=== PATIENT | female | born 1995 | race American Indian/Alaskan Native ===

== ENCOUNTER 2019-05-28 12:59 | Emergency (ER) | payer MEDICAID ==
--- NOTE | 2019-05-28 13:07 | Event Note ---
ED Screening Note Date of service: 05/28/19 Time: 13:04 ED Screening Note: 23 y/o female comes in for elevated blood pressure with no symptoms. Had history of elevated BP during her . ETOH weekends, smokes, LMP 05/08/19 This initial assessment/diagnostic orders/clinical plan/treatment(s) is/are subject to change based on patients health status, clinical progression and re- assessment by fellow clinical providers in the ED. Further treatment and workup at subsequent clinical providers discretion. Patient/guardian urged not to elope from the ED as their condition may be serious if not clinically assessed and managed. Initial orders include:
[2019-05-28 13:35] LABS: Bacteria,Urine 4+ /HPF (Negative); Bilirubin,Urine NEG (Negative); Blood,Urine SM (Negative); Color,Urine Straw (Yellow); Protein,Urine <15 mg/dL mg/dL (Negative); Urobilinogen,Urine < 2.0 mg/dL (<2.0)
[2019-05-28 13:40] LABS: Basophils % (Auto) 0.7 % (0.0-1.8); Eosinophils # (Auto) 0.2 K/mm3 (0.0-0.4); Eosinophils % (Auto) 3.8 % (0.0-4.3); Hematocrit 37.3 % (30.3-42.9); Hemoglobin 12.4 gm/dl (10.1-14.3); Lymphocytes # (Auto) 1.2 K/mm3 (1.2-5.4); Lymphocytes % (Auto) 19.8 % (13.4-35.0); Mean Corpuscular HGB Conc 33 % (30-34); Mean Corpuscular Volume 82 fl (79-97); Monocytes # (Auto) 0.5 K/mm3 (0.0-0.8); Monocytes % (Auto) 7.3 % (0.0-7.3); Platelet Count 275 K/mm3 (140-440); Red Blood Count 4.55 M/mm3 (3.65-5.03); Red Cell Distribution Width 14.7 % (13.2-15.2)
[2019-05-28 13:57] LABS: BUN/Creatinine Ratio 9; Blood Urea Nitrogen 7 mg/dL (7-17); Calcium 9.6 mg/dL (8.4-10.2); Hemolysis Index 4
[2019-05-28] MEDS ORDERED: CATAPRES PO ONE (14:22)
--- NOTE | 2019-05-28 14:23 | Emergency Department Report ---
HPI - General Chief Complaint: High BP Time Seen by Provider: 05/28/19 13:04 - HPI HPI: PT SENT TO ER FROM [facility] FOR EVALUATION FOR HER BLOOD PRESSURE PT STATES SHE HAS NEVER BEEN TOLD OUTSIDE OF HER THAT SHE HAD HIGH BLOOD PRESSURE SHE IS NOT ON ANY MEDS SHE HAS NO HEADACHE, SOB, OR CP ED Past Medical Hx - Past Medical History Previous Medical History?: Yes Additional medical history: HTN DURING PREG- YOUNGEST CHILD IS 1.5 Y. HYPERALDOSTERONISM DURING - Surgical History Past Surgical History?: Yes Additional Surgical History: CSEC - Family History Family history: no significant - Social History Smoking Status: Current Every Day Smoker Substance Use Type: Alcohol ED Review of Systems ROS: Stated complaint: HBP Other details as noted in HPI Comment: All other systems reviewed and negative Physical Exam - Physical Exam Vital Signs: Vital Signs 05/28/19 13:04 Temperature 97.9 F Pulse Rate 78 Respiratory 18 Rate Blood Pressure 205/127 O2 Sat by Pulse 100 Oximetry Physical Exam: ALERT AND ORIENTED CN INTACT NO FOCAL DEF S1S2 LUNGS CTA ABD SNT ED Course Vital Signs 05/28/19 13:04 Temperature 97.9 F Pulse Rate 78 Respiratory 18 Rate Blood Pressure 205/127 O2 Sat by Pulse 100 Oximetry ED Medical Decision Making - Lab Data Result diagrams: 05/28/19 13:12 05/28/19 13:12 - Medical Decision Making Lab Results 05/28/19 05/28/19 05/28/19 Range/Units 13:12 13:12 13:22 WBC 6.2 (4.5-11.0) K/mm3 RBC 4.55 (3.65-5.03) M/mm3 Hgb 12.4 (10.1-14.3) gm/dl Hct 37.3 (30.3-42.9) % MCV 82 (79-97) fl MCH 27 L (28-32) pg MCHC 33 (30-34) % RDW 14.7 (13.2-15.2) % Plt Count 275 (140-440) K/mm3 Lymph % (Auto) 19.8 (13.4-35.0) % [place] % (Auto) 7.3 (0.0-7.3) % Eos % (Auto) 3.8 (0.0-4.3) % Baso % (Auto) 0.7 (0.0-1.8) % Lymph # 1.2 (1.2-5.4) K/mm3 [place]ade # 0.5 (0.0-0.8) K/mm3 Eos # 0.2 (0.0-0.4) K/mm3 Baso # 0.0 (0.0-0.1) K/mm3 Seg Neutrophils % 68.4 (40.0-70.0) % Seg Neutrophils # 4.2 (1.8-7.7) K/mm3 Sodium 138 (137-145) mmol/L Potassium 3.6 (3.6-5.0) mmol/L Chloride 101.4 (98-107) mmol/L Carbon Dioxide 25 (22-30) mmol/L Anion Gap 15 mmol/L BUN 7 (7-17) mg/dL Creatinine 0.8 (0.7-1.2) mg/dL Estimated GFR > 60 ml/min BUN/Creatinine Ratio 9 % Glucose 88 (65-100) mg/dL Calcium 9.6 (8.4-10.2) mg/dL Urine Color Straw (Yellow) Urine Turbidity Clear (Clear) Urine pH 6.0 (5.0-7.0) Ur Specific [place] 1.003 (1.003-1.030) Urine Protein <15 mg/dl (Negative) mg/dL Urine Glucose (UA) Neg (Negative) mg/dL Urine Ketones Neg (Negative) mg/dL Urine Blood Sm (Negative) Urine Nitrite Neg (Negative) Urine Bilirubin Neg (Negative) Urine Urobilinogen < 2.0 (<2.0) mg/dL Ur Leukocyte Esterase Neg (Negative) Urine WBC (Auto) 2.0 (0.0-6.0) /HPF Urine RBC (Auto) 2.0 (0.0-6.0) /HPF U Epithel Cells (Auto) 1.0 (0-13.0) /HPF Urine Bacteria (Auto) 4+ (Negative) /HPF Vital Signs 05/28/19 05/28/19 05/28/19 13:04 14:29 14:31 Temperature 97.9 F Pulse Rate 78 77 Respiratory 18 15 16 Rate Blood Pressure 205/127 Blood Pressure 164/102 [Right] O2 Sat by Pulse 100 Oximetry 05/28/19 14:44 Temperature Pulse Rate 77 Respiratory Rate Blood Pressure 164/102 Blood Pressure [Right] O2 Sat by Pulse Oximetry MEDICATED WITH CLONIDINE FOR BP TOLERATED WELL LONG DISCUSSION WITH PT AND HER ABOUT BLOOD PRESSURE AND HER ISSUES DURING . PT HAS NO SYMPTOMS. SHE HAS BEEN EDUCATED ON DIET, SHE WILL KEEP BP LOG AND FOLLOW UP WITH PCP- REFERRAL PROVIDED. PT AND VERBALIZE UNDERSTANDING OF DC PLAN OF CARE. - Differential Diagnosis HTN RO END ORGAN DISEASE Critical care attestation.: If time is entered above; I have spent that time in minutes in the direct care of this critically ill patient, excluding procedure time. ED Disposition Clinical Impression: Elevated blood pressure reading Disposition: DC-01 TO HOME OR SELFCARE Is pt being admited?: No Does the pt Need Aspirin: No Condition: Stable Instructions: DASH Eating Plan (ED), Low Sodium Diet (ED), Hypertension (ED) Additional Instructions: FOLLOW UP WITH PCP DENIS WE DISCUSSED RECORD YOUR BP AND TAKE TO MD DIET WE DISCUSSED-- SEE ATTACHED REFERRAL BELOW TO PCP Referrals: RENATA GARCIA MD [Primary Care Provider] - 3-5 Days J CARLOS FRANCOIS MD [Staff Physician] - 3-5 Days Time of Disposition: 15:21
[2019-05-28 16:29] VITALS: BP 170/109
== END 2019-05-28 16:29 | disposition home or self-care (01) ==
LOC: ED 12:59
DX: R03.0 Elevated blood-pressure reading, without diagnosis of hypertension (principal); F17.200 Nicotine dependence, unspecified, uncomplicated
CPT/HCPCS: 36415; 80048; 81001; 85025

== ENCOUNTER 2019-07-04 15:57 | Emergency (ER) | payer MEDICAID ==
[2019-07-04 16:07] VITALS: BP 154/107
[2019-07-04 16:51] LABS: Basophils # (Auto) 0.1 K/mm3 (0.0-0.1); Basophils % (Auto) 0.5 % (0.0-1.8); Eosinophils # (Auto) 0.2 K/mm3 (0.0-0.4); Eosinophils % (Auto) 1.5 % (0.0-4.3); Hematocrit 38.3 % (30.3-42.9); Hemoglobin 12.6 gm/dl (10.1-14.3); Lymphocytes # (Auto) 0.8 K/mm3 (1.2-5.4); Lymphocytes % (Auto) 7.4 % (13.4-35.0); Mean Corpuscular HGB Conc 33 % (30-34); Mean Corpuscular Volume 80 fl (79-97); Monocytes # (Auto) 0.7 K/mm3 (0.0-0.8); Monocytes % (Auto) 6.6 % (0.0-7.3); Platelet Count 280 K/mm3 (140-440); Red Blood Count 4.76 M/mm3 (3.65-5.03); Red Cell Distribution Width 14.4 % (13.2-15.2)
[2019-07-04] MEDS ORDERED: TORADOL IM ONE (19:55)
[2019-07-04] MEDS ORDERED: LIDOCAINE VISCOUS 2% PO ONE (19:55)
[2019-07-04] MEDS ORDERED: DECADRON IM ONE (19:55)
[2019-07-04] MEDS ORDERED: BICILLIN L-A IM ONE (19:56)
[2019-07-04 22:38] LABS: Bacteria,Urine 2+ /HPF (Negative); Bilirubin,Urine NEG (Negative); Blood,Urine LG (Negative); Color,Urine Yellow (Yellow); Mucus,Urine 2+ /HPF; Urobilinogen,Urine < 2.0 mg/dL (<2.0)
--- NOTE | 2019-07-04 22:58 | Emergency Department Report ---
ED General Adult HPI - General Chief complaint: Vaginal Bleeding Stated complaint: MENSTRAL OVER 10 DAYS/PAIN Source: patient Mode of arrival: Ambulatory Limitations: No Limitations - History of Present Illness Initial comments: Patient is a 23-year-old -[place] female with a history of hypertension who presents to the ED with complaint of acute onset persistent severe sore throat and dysphagia with swollen tonsils for the last 4 days, and persistent heavy vaginal bleeding for the last 2 weeks. Patient denies abdominal pain, dysuria, chest pain, vaginal discharge, urinary frequency and urgency, low back pain, headache, dizziness, chest pain, shortness of breath, nasal and sinus congestion, cough, change in vision, nausea and vomiting. MD Complaint: Sore throat; vaginal bleeding -: Sudden, days(s) (4) Location: mouth, genitals Radiation: non-radiation Severity scale (0 -10): 6 Quality: burning, aching, sharp Consistency: constant Improves with: none Worsens with: none Associated Symptoms: denies other symptoms, headaches, loss of appetite, malaise. denies: confusion, chest pain, cough, diaphoresis, fever/chills, nausea/vomiting, rash, seizure, shortness of breath, syncope, weakness Treatments Prior to Arrival: none - Related Data Previous Rx's Medication Instructions Recorded Last Taken Type Ibuprofen [Motrin] 800 mg PO Q8HR PRN #20 tablet 07/04/19 Unknown Rx Lidocaine Viscous 2% 10 ml PO Q6H PRN #120 ml 07/04/19 Unknown Rx cephALEXin [Keflex] 500 mg PO Q6HR #40 capsule 07/04/19 Unknown Rx medroxyPROGESTERone ACETATE 10 mg PO DAILY #10 tablet 07/04/19 Unknown Rx [Medroxyprogesterone Acetate] methylPREDNISolone [Medrol 4MG 4 mg PO DAILY #21 tab.ds.pk 07/04/19 Unknown Rx DOSEPAK (21 tabs)] Allergies Allergy/AdvReac Type Severity Reaction Status Date / Time pollen extracts AdvReac Hives Verified 07/04/19 16:01 ED Review of Systems ROS: Stated complaint: MENSTRAL OVER 10 DAYS/PAIN Other details as noted in HPI Constitutional: denies: chills, fever Eyes: denies: eye pain, eye discharge, vision change ENT: throat pain, congestion. denies: ear pain Respiratory: denies: cough, shortness of breath, wheezing Cardiovascular: denies: chest pain, palpitations Endocrine: no symptoms reported Gastrointestinal: denies: abdominal pain, nausea, vomiting, diarrhea, hematemesis Genitourinary: abnormal menses (Prolonged heavy vaginal bleeding). denies: urgency, dysuria, discharge Musculoskeletal: arthralgia, myalgia. denies: back pain, joint swelling Skin: denies: rash, lesions Neurological: denies: headache, weakness, paresthesias Psychiatric: denies: anxiety, depression Hematological/Lymphatic: denies: easy bleeding, easy bruising ED Past Medical Hx - Past Medical History Hx Hypertension: Yes Additional medical history: HTN DURING PREG- YOUNGEST CHILD IS 1.5 Y. HYPERALDOSTERONISM DURING - Surgical History Additional Surgical History: CSEC - Social History Smoking Status: Current Every Day Smoker Substance Use Type: None - Medications Home Medications: Home Medications Medication Instructions Recorded Confirmed Last Taken Type Ibuprofen [Motrin] 800 mg PO Q8HR PRN #20 tablet 07/04/19 Unknown Rx Lidocaine Viscous 2% 10 ml PO Q6H PRN #120 ml 07/04/19 Unknown Rx cephALEXin [Keflex] 500 mg PO Q6HR #40 capsule 07/04/19 Unknown Rx medroxyPROGESTERone ACETATE 10 mg PO DAILY #10 tablet 07/04/19 Unknown Rx [Medroxyprogesterone Acetate] methylPREDNISolone [Medrol 4MG 4 mg PO DAILY #21 tab.ds.pk 07/04/19 Unknown Rx DOSEPAK (21 tabs)] ED Physical Exam - General Limitations: No Limitations General appearance: alert, in no apparent distress - Head Head exam: Present: atraumatic, normocephalic, normal inspection - Eye Eye exam: Present: normal appearance, PERRL, EOMI Pupils: Present: normal accommodation - ENT ENT exam: Present: mucous membranes moist, TM's normal bilaterally, normal external ear exam, other (swollen, erythematous tonsils and oropharynx with thick white exudates) - Neck Neck exam: Present: normal inspection, full ROM, lymphadenopathy. Absent: tenderness - Respiratory Respiratory exam: Present: normal lung sounds bilaterally. Absent: respiratory distress, wheezes, rales, rhonchi, chest wall tenderness, decreased breath sounds, prolonged expiratory - Cardiovascular Cardiovascular Exam: Present: regular rate, normal rhythm, normal heart sounds. Absent: systolic murmur, diastolic murmur, rubs, gallop - GI/Abdominal GI/Abdominal exam: Present: soft, normal bowel sounds. Absent: tenderness, guarding, hyperactive bowel sounds, organomegaly - Rectal Rectal exam: Present: deferred - Bi-manual exam: Present: other (deferred, patient declined) - Extremities Exam Extremities exam: Present: normal inspection, full ROM, normal capillary refill - Back Exam Back exam: Present: normal inspection, full ROM. Absent: tenderness, CVA tenderness (R), CVA tenderness (L), muscle spasm, vertebral tenderness - Neurological Exam Neurological exam: Present: alert, oriented X3, CN II-XII intact, normal gait, reflexes normal - Psychiatric Psychiatric exam: Present: normal affect, normal mood - Skin Skin exam: Present: warm, dry, intact, normal color. Absent: rash ED Course Vital Signs 07/04/19 16:06 Temperature 98.8 F Pulse Rate 90 Respiratory 16 Rate Blood Pressure 154/107 [Left] O2 Sat by Pulse 99 Oximetry - Reevaluation(s) Reevaluation #1: 07/04/19 23:06 This is a 23-year-old female who presented to the ED with sore throat, dysphagia and vaginal bleeding. In the ED, patient is alert and oriented 3 and is not in distress. Physical exam revealed swollen tonsils with thick white exudates and erythematous oropharynx. Patient is alert and oriented 3 and is not in distress. Vital signs are stable in the ED patient was treated for pain in the ED and also received Bicillin LA 1.2 million units intramuscular injection MP Rigali for streptococcal pharyngitis, patient also received viscous lidocaine oral solution and Decadron injection. Lab test results were reviewed and are all nonactionable except for urinalysis that showed acute urinary tract infection with large amount of blood in the urine. Patient was discharged home on medications and advised to follow-up with her [facility] physician or primary care physician in 7-10 days for reevaluation or return to the ED immediately if symptoms get worse. 07/04/19 23:08 ED Medical Decision Making - Lab Data Result diagrams: 07/04/19 16:24 - Medical Decision Making This is a 23-year-old female who presented to the ED with sore throat, dysphagia and vaginal bleeding. In the ED, patient is alert and oriented 3 and is not in distress. Physical exam revealed swollen tonsils with thick white exudates and erythematous oropharynx. Patient is alert and oriented 3 and is not in distress. Vital signs are stable in the ED patient was treated for pain in the ED and also received Bicillin LA 1.2 million units intramuscular injection MP Rigali for streptococcal pharyngitis, patient also received viscous lidocaine oral solution and Decadron injection. Lab test results were reviewed and are all nonactionable except for urinalysis that showed acute urinary tract infection with large amount of blood in the urine. Patient was discharged home on medications and advised to follow-up with her [facility] physician or primary care physician in 7-10 days for reevaluation or return to the ED immediately if symptoms get worse. - Differential Diagnosis Strep pharyngitis; Vaginal bleeding; ; Acute UTI; menstrual cycle Critical care attestation.: If time is entered above; I have spent that time in minutes in the direct care of this critically ill patient, excluding procedure time. ED Disposition Clinical Impression: Acute streptococcal pharyngitis, Acute urinary tract infection, Dysfunctional uterine hemorrhage Disposition: TO HOME OR SELFCARE Is pt being admited?: No Does the pt Need Aspirin: No Condition: Stable Instructions: Urinary Tract Infection in Women (ED), Pharyngitis (ED), Menstrua tion (ED) Additional Instructions: Take medication with food, drink plenty of fluids and follow up with your primary care physician in 7-10 days for reevaluation. Return to the ED immediately if symptoms get worse. Prescriptions: cephALEXin [Keflex] 500 mg PO Q6HR #40 capsule Lidocaine Viscous 2% 10 ml PO Q6H PRN #120 ml PRN Reason: Pain , Severe (7-10) methylPREDNISolone [Medrol 4MG DOSEPAK (21 tabs)] 4 mg PO DAILY #21 tab.ds.pk medroxyPROGESTERone ACETATE [Medroxyprogesterone Acetate] 10 mg PO DAILY #10 tablet Ibuprofen [Motrin] 800 mg PO Q8HR PRN #20 tablet PRN Reason: Pain , Severe (7-10) Referrals: PRIMARY CARE, [Primary Care Provider] - 3-5 Days Time of Disposition: 22:56 Print Language: MOHAWK
== END 2019-07-04 23:10 | disposition home or self-care (01) ==
LOC: ED 15:57
DX: J02.0 Streptococcal pharyngitis (principal); N39.0 Urinary tract infection, site not specified; N93.8 Other specified abnormal uterine and vaginal bleeding; I10 Essential (primary) hypertension; F17.200 Nicotine dependence, unspecified, uncomplicated; Z88.9 Allergy status to unspecified drugs, medicaments and biological substances; Z79.899 Other long term (current) drug therapy
CPT/HCPCS: 36415; 81001; 84702; 84703; 85025; 86900; 86901; 87086; 96372; 99283; J0561; J1100; J1885

== ENCOUNTER 2019-07-25 05:06 | Emergency (ER) | payer MEDICAID ==
[2019-07-25] MEDS ORDERED: ALBUTEROL 2.5 MG/3 ML NEBU IH ONE (07:46)
[2019-07-25] MEDS ORDERED: predniSONE 20 MG TAB PO ONE (07:46)
--- NOTE | 2019-07-25 07:47 | Emergency Department Report ---
Minor Respiratory - HPI Chief Complaint: Upper Respiratory Infection Stated Complaint: COUGH, NASAL DRIP Time Seen by Provider: 07/25/19 07:14 Duration: 3 Days Pain Location: Throat, Nose, Chest Severity: mild Minor Respiratory: Yes Rhinorrhea, Yes Sore Throat, Yes Able to Tolerate Fluids, Yes Cough, No Ear Pain, No Sick Contacts, No Hemoptysis, No Chest Pain, No Short ness of Breath, No Fever Other History: 23 YO AA FEMALE COMES TO ER WITH COLD COUGH CONGESTION. CHILLS AND GREEN PHLEGM FOR SEVERAL DAYS. PMH. HTN- OFF MEDS. BRONCHITIS. PT HAS NO PCP. DENIES CP. SOB. ED Review of Systems ROS: Stated complaint: COUGH, NASAL DRIP Other details as noted in HPI Comment: All other systems reviewed and negative ED Past Medical Hx - Past Medical History Previous Medical History?: Yes Hx Hypertension: Yes Additional medical history: HTN DURING PREG- YOUNGEST CHILD IS 1.5 Y. HYPERALDOSTERONISM DURING - Surgical History Past Surgical History?: Yes Additional Surgical History: CSEC - Family History Family history: no significant - Social History Smoking Status: Current Every Day Smoker Substance Use Type: None - Medications Home Medications: Home Medications Medication Instructions Recorded Confirmed Last Taken Type Ibuprofen [Motrin] 800 mg PO Q8HR PRN #20 tablet 07/04/19 Unknown Rx Lidocaine Viscous 2% 10 ml PO Q6H PRN #120 ml 07/04/19 Unknown Rx cephALEXin [Keflex] 500 mg PO Q6HR #40 capsule 07/04/19 Unknown Rx medroxyPROGESTERone ACETATE 10 mg PO DAILY #10 tablet 07/04/19 Unknown Rx [Medroxyprogesterone Acetate] methylPREDNISolone [Medrol 4MG 4 mg PO DAILY #21 tab.ds.pk 07/04/19 Unknown Rx DOSEPAK (21 tabs)] Azithromycin [Zithromax Z-FREDDY] 250 mg PO DAILY #6 tablet 07/25/19 Unknown Rx Benzonatate [Tessalon Perles] 100 mg PO Q12H PRN #20 capsule 07/25/19 Unknown Rx Cetirizine HCl [ZyrTEC] 10 mg PO DAILY #30 capsule 07/25/19 Unknown Rx Fluticasone [Flonase] 1 spray NS QDAY #1 bottle 07/25/19 Unknown Rx predniSONE [Deltasone] 20 mg PO DAILY #5 tablet 07/25/19 Unknown Rx Minor Respiratory Exam - Exam General: Vital signs noted. No distress. Alert and acting appropriately. HEENT: Yes Pharyngeal Erythema, Yes Moist Mucous Membranes, Yes Frontal Tenderness, Yes Maxillary Tenderness, No Pharyngeal Exudates, No Rhinorrhea, No Conjuctival Injection Ear: Neither TM Bulge, Neither TM Erythema, Neither EAC Pain, Neither EAC Discharge Neck: Yes Supple, No Adenopathy Lungs: Yes Good Air Exchange, Yes Wheezes, Yes Cough, No Ronchi, No Stridor Heart: Yes Regular, No Murmur Abdomen: Yes Normal Bowel Sounds, No Tenderness, No Peritoneal Signs Skin: No Rash Neurologic: Alert and oriented, no deficits. Musculoskeletal: Unremarkable. ED Course Vital Signs 07/25/19 05:45 Temperature 99.3 F Pulse Rate 92 H Respiratory 14 Rate Blood Pressure 160/105 O2 Sat by Pulse 99 Oximetry ED Medical Decision Making - Medical Decision Making NON TOXIC NON ILL AMBULATORY TAKING PO EDUCATED ON HER BP SHE HAS NO PCP I TOLD HER SHE NEEDS TO FOLLOW UP WITH PCP REGARDING HER BP; DISCUSSED HER WEIGHT BEING A FACTOR SHE VERBALIZES UNDERSTANDING AND WILL FOLLOW UP MEDICATED IN ER DC HOME WITH DC PLAN OF CARE AND PCP FOLLOW UP Vital Signs 07/25/19 07/25/19 05:45 07:58 Temperature 99.3 F Pulse Rate 92 H Pulse Rate [ 81 Anterior Throughout] Respiratory 14 Rate Respiratory 18 Rate [Anterior Throughout] Blood Pressure 160/105 O2 Sat by Pulse 99 Oximetry - Differential Diagnosis SIMPLE URI Critical care attestation.: If time is entered above; I have spent that time in minutes in the direct care of this critically ill patient, excluding procedure time. ED Disposition Clinical Impression: URTI (acute upper respiratory infection), Acute bronchitis, Elevated blood pressure reading Disposition: DC-01 TO HOME OR SELFCARE Is pt being admited?: No Does the pt Need Aspirin: No Condition: Stable Instructions: Acute Bronchitis (ED) Additional Instructions: HYDRATE WELL WITH WATER MEDS ORDERED TODAY FOLLOW UP WITH PCP REGARDING BLOOD PRESSURE REFERRAL BELOW Prescriptions: predniSONE [Deltasone] 20 mg PO DAILY #5 tablet Fluticasone [Flonase] 1 spray NS QDAY #1 bottle Benzonatate [Tessalon Perles] 100 mg PO Q12H PRN #20 capsule PRN Reason: Cough Azithromycin [Zithromax Z-FREDDY] 250 mg PO DAILY #6 tablet Cetirizine HCl [ZyrTEC] 10 mg PO DAILY #30 capsule Referrals: PRIMARY CARE, [Primary Care Provider] - 3-5 Days EVARISTO ROBERTSON MD [Staff Physician] - 3-5 Days Time of Disposition: 08:05
[2019-07-25 08:20] VITALS: BP 160/100
== END 2019-07-25 08:19 | disposition home or self-care (01) ==
LOC: ED 05:06
DX: J06.9 Acute upper respiratory infection, unspecified (principal); J20.9 Acute bronchitis, unspecified; R03.0 Elevated blood-pressure reading, without diagnosis of hypertension; I10 Essential (primary) hypertension; F17.200 Nicotine dependence, unspecified, uncomplicated; Z79.899 Other long term (current) drug therapy; Z91.09 Other allergy status, other than to drugs and biological substances
CPT/HCPCS: 94644; 99283; J7512

== ENCOUNTER 2020-09-04 07:31 | Emergency (ER) | payer MEDICAID ==
[2020-09-04 08:21] LABS: Hematocrit 39.9 % (30.3-42.9); Hemoglobin 13.3 gm/dl (10.1-14.3); Mean Corpuscular HGB Conc 33 % (30-34); Mean Corpuscular Volume 82 fl (79-97); Platelet Count 314 K/mm3 (140-440); Red Blood Count 4.88 M/mm3 (3.65-5.03); Red Cell Distribution Width 14.3 % (13.2-15.2)
[2020-09-04 08:39] LABS: BUN/Creatinine Ratio 10; Blood Urea Nitrogen 9 mg/dL (7-17); Calcium 9.5 mg/dL (8.4-10.2); Hemolysis Index 2
[2020-09-04 09:09] VITALS: BP 167/104
[2020-09-04] MEDS ORDERED: KETOROLAC 60 MG/2 ML INJ IM STA (09:38)
[2020-09-04] MEDS ORDERED: ONDANSETRON 4 MG ODT TAB PO STA (09:39)
[2020-09-04] MEDS ORDERED: oxyCODONE /ACETAMINOPHEN 5-325MG TAB PO ONE (09:39)
--- NOTE | 2020-09-04 09:45 | Emergency Department Report ---
ED Headache HPI - General Chief Complaint: Headache Stated Complaint: HEADACHES X 4 DAYS Time Seen by Provider: 09/04/20 09:16 - History of Present Illness Initial Comments: 25-year-old F [place]an female with a 2-year history of untreated hypertension presents emerge department complaining of a 4 to 5-day history of left-sided he adache was dull and throbbing of an unknown etiology associated with a vague episodes of lightheadedness on yesterday. She reports no loss of vision request, no numbness tingling" ports no nausea, no vomiting, no fever, chills, sweats, no chest pain, no palpitations no tinnitus. The headache is dull and throbbing when present with no palliative or provocative factors she did notice her blood pressure has been increasing. She is moving to [place] tomorrow and presents to the emergency department seeking treatment for her headache and has an appointment with her primary care doctor in [place] on September 29 but request assistance with finding a sooner appointment if possible Timing/Duration: other (4 days) Quality: mild, moderate Head Injury Location: parietal Recent Head Trauma: occasional headaches Associated Symptoms: denies: facial pain, fever/chills, flushing, nasal congestion, sinus infection, vision changes, weakness Allergies/Adverse Reactions: Allergies pollen extracts Adverse Reaction (Verified 07/04/19 16:01) Hives Home Medications: Ambulatory Orders Ibuprofen [Motrin] 800 mg PO Q8HR PRN #20 tablet 07/04/19 Lidocaine Viscous 2% 10 ml PO Q6H PRN #120 ml 07/04/19 cephALEXin [Keflex] 500 mg PO Q6HR #40 capsule 07/04/19 medroxyPROGESTERone ACETATE [Medroxyprogesterone Acetate] 10 mg PO DAILY #10 tablet 07/04/19 methylPREDNISolone [Medrol 4MG DOSEPAK (21 tabs)] 4 mg PO DAILY #21 tab.ds.pk 07/04/19 Azithromycin [Zithromax Z-FREDDY] 250 mg PO DAILY #6 tablet 07/25/19 Benzonatate [Tessalon Perles] 100 mg PO Q12H PRN #20 capsule 07/25/19 Cetirizine HCl [ZyrTEC] 10 mg PO DAILY #30 capsule 07/25/19 Fluticasone [Flonase] 1 spray NS QDAY #1 bottle 10/03/19 predniSONE [Deltasone] 20 mg PO DAILY #5 tablet 07/25/19 Amlodipine Besylate [Norvasc] 5 mg PO DAILY #30 tablet 09/04/20 Butalb/Acetaminophen/Caffeine [Fioricet 50-300-40 mg CAP] 1 cap PO Q6HR PRN #20 cap 09/04/20 ED Review of Systems ROS: Stated complaint: HEADACHES X 4 DAYS Other details as noted in HPI Comment: All other systems reviewed and negative ED Past Medical Hx - Past Medical History Previous Medical History?: Yes Hx Hypertension: Yes (No medication) Additional medical history: HTN DURING PREG- YOUNGEST CHILD IS 1.5 Y. HYPERA LDOSTERONISM DURING - Surgical History Past Surgical History?: Yes Additional Surgical History: CSEC - Social History Smoking Status: Current Every Day Smoker - Medications Home Medications: Home Medications Medication Instructions Recorded Confirmed Last Taken Type Ibuprofen [Motrin] 800 mg PO Q8HR PRN #20 tablet 07/04/19 Unknown Rx Lidocaine Viscous 2% 10 ml PO Q6H PRN #120 ml 07/04/19 Unknown Rx cephALEXin [Keflex] 500 mg PO Q6HR #40 capsule 07/04/19 Unknown Rx medroxyPROGESTERone ACETATE 10 mg PO DAILY #10 tablet 07/04/19 Unknown Rx [Medroxyprogesterone Acetate] methylPREDNISolone [Medrol 4MG 4 mg PO DAILY #21 tab.ds.pk 07/04/19 Unknown Rx DOSEPAK (21 tabs)] Azithromycin [Zithromax Z-FREDDY] 250 mg PO DAILY #6 tablet 07/25/19 Unknown Rx Benzonatate [Tessalon Perles] 100 mg PO Q12H PRN #20 capsule 07/25/19 Unknown Rx Cetirizine HCl [ZyrTEC] 10 mg PO DAILY #30 capsule 07/25/19 Unknown Rx Fluticasone [Flonase] 1 spray NS QDAY #1 bottle 07/25/19 Unknown Rx predniSONE [Deltasone] 20 mg PO DAILY #5 tablet 07/25/19 Unknown Rx Amlodipine Besylate [Norvasc] 5 mg PO DAILY #30 tablet 09/04/20 Unknown Rx Butalb/Acetaminophen/Caffeine 1 cap PO Q6HR PRN #20 cap 09/04/20 Unknown Rx [Fioricet 50-300-40 mg CAP] ED Physical Exam - General Limitations: No Limitations General appearance: alert, in no apparent distress - Head Head exam: Present: atraumatic, normocephalic - Eye Eye exam: Present: normal appearance, PERRL, EOMI, nystagmus Pupils: Present: other (Negative funduscopic examination) - ENT ENT exam: Present: normal exam, mucous membranes moist - Neck Neck exam: Present: normal inspection, full ROM - Respiratory Respiratory exam: Present: normal lung sounds bilaterally. Absent: respiratory distress, wheezes, rales, chest wall tenderness, accessory muscle use - Cardiovascular Cardiovascular Exam: Present: regular rate, normal rhythm. Absent: systolic murmur, diastolic murmur, rubs, gallop - GI/Abdominal GI/Abdominal exam: Present: soft, normal bowel sounds - Extremities Exam Extremities exam: Present: normal inspection, full ROM, normal capillary refill - Back Exam Back exam: Present: normal inspection. Absent: CVA tenderness (R), CVA tenderness (L) - Neurological Exam Neurological exam: Present: alert, oriented X3, CN II-XII intact, normal gait, reflexes normal. Absent: motor sensory deficit - Psychiatric Psychiatric exam: Present: normal affect, normal mood. Absent: flat affect, manic, homicidal ideation, suicidal ideation - Skin Skin exam: Present: warm, dry, intact, normal color. Absent: rash ED Course Vital Signs 09/04/20 09/04/20 07:38 09:01 Temperature 97.9 F 98.3 F Pulse Rate 82 80 Respiratory 20 16 Rate Blood Pressure 190/120 Blood Pressure 167/104 [Left] O2 Sat by Pulse 100 100 Oximetry ED Medical Decision Making - Lab Data Result diagrams: 09/04/20 08:06 09/04/20 08:06 - Medical Decision Making This patient presents with a headache most consistent with tension. Differential diagnosis includes migraine versus tension type headache. No headache red flags. Neurologic exam without evidence of meningismus, focal neurologic findings.Based on the patient's history and physical there is very low clinical suspicion for significant intracranial pathology. The headache was NOT sudden onset, NOT maximal at onset, there are NO neurologic findings, the patient does NOT have a fever, the patient does NOT have any jaw claudication, the patient does NOT endorse a clotting disorder, patient DENIES any trauma or eye pain and the headache is NOT associated with dizziness or ataxia. Presentation not consistent with acute intracranial bleed to include SAH (lack of risk factors, headache history). Presentation not consistent with acute [employer] infection to include meningitis or brain abscess, Temporal arteritis unlikely, as is acute angle closure glaucoma given history and physical findings. Presentation not consistent with other acute, emergent causes of headache at this time. Plan to treat symptomatically with pain medication. No indication for imaging/LP at this time. Plan: Analgesic control and hypertension control. Advised to follow-up with new primary care provider and at the [place] upon her arrival also gave her an alternative option as she requested. She has been neurologically stable throughout this entire ED visit speaking in full sentences no ataxia sound understanding and interpretation of the importance of compliance with hypertension medication and also when to return to the emergency department should it be necessary Critical care attestation.: If time is entered above; I have spent that time in minutes in the direct care of this critically ill patient, excluding procedure time. ED Disposition Clinical Impression: Hypertension, Cephalgia Disposition: DC- TO HOME OR SELFCARE Is pt being admited?: No Does the pt Need Aspirin: No Condition: Stable Instructions: Tension Headache, Adult, [id number], Form - Headache Record, Hypertension, Adult, Hypertension (ED) Prescriptions: Butalb/Acetaminophen/Caffeine [Fioricet 50-300-40 mg CAP] 1 cap PO Q6HR PRN #20 cap PRN Reason: Headache Amlodipine Besylate [Norvasc] 5 mg PO DAILY #30 tablet Referrals: PRIMARY CARE, [Primary Care Provider] - 3-5 Days [facility] [place] [Other] - 3-5 Days
== END 2020-09-04 11:00 | disposition home or self-care (01) ==
LOC: ED 07:31
DX: I10 Essential (primary) hypertension (principal); R51.9 Headache, unspecified; F17.200 Nicotine dependence, unspecified, uncomplicated; Z79.899 Other long term (current) drug therapy; Z98.890 Other specified postprocedural states; Z91.09 Other allergy status, other than to drugs and biological substances
CPT/HCPCS: 36415; 80048; 85027; 99283; J1885; Q0162

== ENCOUNTER 2020-09-05 07:51 | Emergency (ER) | payer MEDICAID ==
[2020-09-05] MEDS ORDERED: ACETAMINOPHEN 325 MG TAB PO ONE (08:10)
[2020-09-05] MEDS ORDERED: FAMOTIDINE 20 MG TAB PO ONE (08:10)
--- NOTE | 2020-09-05 08:12 | Emergency Department Report ---
ED Chest Pain HPI - General Chief Complaint: Chest Pain Stated Complaint: CHEST PAIN PUI?: No Time Seen by Provider: 09/05/20 08:00 Source: patient, EMS (Verbal report received from emergency medical services. EMS documentation not available at time of chart dictation ), RN notes reviewed, old records reviewed Mode of arrival: Stretcher Limitations: No Limitations - History of Present Illness Initial Comments: The patient was evaluated in the emergency department for symptoms described in the history of present illness. He/she was evaluated in the context of the global COVID-19 pandemic, which necessitated consideration that the patient might be at risk for infection with the virus that causes COVID-19. Institutional protocols and algorithms that pertain to the evaluation of patients at risk for COVID-19 are in a state of rapid change based on information released by regulatory bodies including the CDC and federal and state organizations. These policies and algorithms were followed during the patient's care in the emergency department. Please note that these policies, procedures and recommendations changed on a rapid basis. This is a pleasant and cooperative 25-year-old female, who is not known to myself previously. She states that she is not currently , and she has not delivered or given within the past 6 weeks. She denies DVT, pulmonary embolism risk factors. Past medical history includes hypoaldosteronism. She presents to the ER today with a complaint of nontraumatic central chest pain. It started approximately 2 hours ago. The pain does not radiate to the back, arms or neck. There is no vomiting, diaphoresis or exertional shortness of breath. Denies additional pain. Specifically denies headache, neck pain, abdominal pain, urinary symptoms, hematemesis, bright red blood per rectum. She denies family history of DVT, pulmonary embolism, and coronary artery disease. She states her pain is fairly minimal at this time. She was seen yesterday for headache at this emergency room. She had laboratory studies obtained which were fairly unremarkable. She has follow-up with a primary care doctor September 29. Complaint: chest pain -: hour(s), This morning Pain Location: substernal Pain Radiation: none Severity: mild Quality: aching Consistency: constant Improves With: nothing Worsens With: nothing re: denies: nausea, vomting, diaphoresis, dyspnea, sense of impending doom Aspirin use within the Past 7 Days: (0) No - Related Data Previous Rx's Medication Instructions Recorded Last Taken Type Amlodipine Besylate [Norvasc] 5 mg PO DAILY #30 tablet 09/04/20 Unknown Rx Butalb/Acetaminophen/Caffeine 1 cap PO Q6HR PRN #20 cap 09/04/20 Unknown Rx [Fioricet 50-300-40 mg CAP] Acetaminophen [Non-Aspirin Extra 500 mg PO Q6HR PRN #30 tablet 09/05/20 Unknown Rx Strength] Aspirin [Aspirin BABY CHEW TAB] 81 mg PO QDAY #30 tab.chew 09/05/20 Unknown Rx Famotidine [Pepcid] 20 mg PO QDAY #30 tablet 09/05/20 Unknown Rx Allergies Allergy/AdvReac Type Severity Reaction Status Date / Time pollen extracts AdvReac Hives Verified 07/04/19 16:01 Heart Score - HEART Score History: Slightly suspicious EKG: Non-specific Age: < 45 Risk factors: 1-2 risk factors Troponin: < normal limit HEART Score: 2 - Critical Actions Critical Actions: 0-3 pts:0.9-1.7%risk of adverse cardiac event.Candidate for discharge ED Review of Systems ROS: Stated complaint: CHEST PAIN Other details as noted in HPI Constitutional: denies: fever Eyes: denies: eye discharge ENT: denies: epistaxis Respiratory: denies: cough, shortness of breath Cardiovascular: chest pain Gastrointestinal: denies: abdominal pain Genitourinary: denies: dysuria Musculoskeletal: denies: back pain Skin: denies: lesions Neurological: denies: headache ED Past Medical Hx - Past Medical History Hx Hypertension: Yes (No medication) Additional medical history: HTN DURING PREG- YOUNGEST CHILD IS 1.5 Y. HYPERALDOSTERONISM DURING - Surgical History Additional Surgical History: CSEC - Social History Smoking Status: Current Every Day Smoker - Medications Home Medications: Home Medications Medication Instructions Recorded Confirmed Last Taken Type Amlodipine Besylate [Norvasc] 5 mg PO DAILY #30 tablet 09/04/20 Unknown Rx Butalb/Acetaminophen/Caffeine 1 cap PO Q6HR PRN #20 cap 09/04/20 Unknown Rx [Fioricet 50-300-40 mg CAP] Acetaminophen [Non-Aspirin Extra 500 mg PO Q6HR PRN #30 tablet 09/05/20 Unknown Rx Strength] Aspirin [Aspirin BABY CHEW TAB] 81 mg PO QDAY #30 tab.chew 09/05/20 Unknown Rx Famotidine [Pepcid] 20 mg PO QDAY #30 tablet 09/05/20 Unknown Rx ED Physical Exam - General Limitations: No Limitations General appearance: alert, in no apparent distress - Head Head exam: Present: atraumatic, normocephalic - Eye Eye exam: Present: normal appearance, EOMI. Absent: nystagmus - ENT ENT exam: Present: normal exam, normal orophraynx, mucous membranes moist, normal external ear exam - Neck Neck exam: Present: normal inspection, full ROM. Absent: tenderness, meningismus - Respiratory Respiratory exam: Present: normal lung sounds bilaterally, other (Chaperoned by nurse Annette Coronado). Absent: respiratory distress, rhonchi, stridor, chest wall tenderness - Cardiovascular Cardiovascular Exam: Present: regular rate, normal rhythm, normal heart sounds. Absent: bradycardia, tachycardia, irregular rhythm, systolic murmur, diastolic murmur, rubs, gallop - GI/Abdominal GI/Abdominal exam: Present: soft, normal bowel sounds. Absent: distended, tenderness, guarding, rebound, rigid, pulsatile mass - Extremities Exam Extremities exam: Present: normal inspection, full ROM, other (2+ pulses noted in the bilateral upper and lower extremities. There is no palpable cord. negative Homans sign. Muscular compartments are soft. The pelvis is stable.). Absent: pedal edema, calf tenderness - Back Exam Back exam: Present: normal inspection, full ROM. Absent: tenderness, CVA tenderness (R), CVA tenderness (L), paraspinal tenderness, vertebral tenderness - Neurological Exam Neurological exam: Present: alert, oriented X3, other (No facial droop. Tongue midline. Extraocular movements intact bilaterally. Facial sensation intact to light touch in V1, V2, V3 distribution bilaterally. 5 and a 5 strength in 4 extremities. Sensation intact to light touch in 4 extremities.). Absent: motor sensory deficit - Psychiatric Psychiatric exam: Present: normal affect, normal mood - Skin Skin exam: Present: warm, dry, intact, normal color. Absent: rash ED Course Vital Signs 09/05/20 09/05/20 09/05/20 08:49 09:14 10:14 Temperature 98.1 F Pulse Rate 88 Respiratory 18 18 16 Rate Blood Pressure 182/98 O2 Sat by Pulse 97 Oximetry 09/05/20 09/05/2009/05/20 10:45 11:00 11:15 Temperature Pulse Rate 69 71 77 Respiratory 16 12 18 Rate Blood Pressure 172/119 172/113 172/113 O2 Sat by Pulse 100 98 99 Oximetry 09/05/20 09/05/20 09/05/20 11:31 11:55 12:15 Temperature Pulse Rate 70 79 80 Respiratory 15 38 H 16 Rate Blood Pressure 172/113 172/113 173/100 O2 Sat by Pulse 99 99 99 Oximetry 09/05/20 12:31 Temperature Pulse Rate 73 Respiratory 9 L Rate Blood Pressure 173/100 O2 Sat by Pulse 100 Oximetry - Reevaluation(s) Reevaluation #1: 09/05/20 09:18 Differential diagnosis, including but not limited to: GERD, gastritis, hiatal hernia, pneumonia, costochondritis, coronary artery disease, pulmonary embolism, chronic hypertension Assessment and plan: 25-year-old female, who is afebrile with reassuring vital signs, with the exception of chronically elevated blood pressure, which is not acutely symptomatic or decompensated, please reference the [employer] clinical policy on asymptomatic hypertension, with equal pulses in the upper and lower extremities, presenting with nonspecific chest pain. Place patient on vehicle monitor technician. Obtain appropriate laboratory studies. Obtain D-dimer given incomplete right bundle branch block. However, patient low risk for pulmonary embolism by PERC criteria, and low risk by Wells criteria. In addition, she is not currently tachycardic, tachypneic or hypoxic. Assuming negative troponin, which we anticipate, patient at low risk for major adverse cardiac event as per heart score. Check D-dimer, troponin x2, EKG x2, place patient on vehicle monitor technician, treat symptoms, obtain x-ray the chest, and reassess. As per this hospital's policy, procedure and protocol, patient's information will be transmitted to [facility] cardiology, to arrange close outpatient follow-up to complete a cardiac risk stratification. Furthermore, the patient indicates she will take her own antihypertensive therapy. 09/05/20 09:58 Feeling improved. Troponin negative. D-dimer elevated. X-ray of the chest canceled. CT scan of the chest will be obtained. Basic metabolic panel otherwise unremarkable. Playing on her cellular phone. Reassessed patient, and she states that she feels improved. Patient updated on findings. Reevaluation #2: 09/05/20 12:16 Patient reassessed multiple times. Feeling improved. Playing on her cellular phone. Troponin negative x2. EKG unchanged x2. Vital signs are reviewed and appreciated. CT scan of the chest negative for acute pathology. Paperwork has been faxed to [facility] where patient may complete outpatient cardiac risk ratification. BRENDON score - Brendon Score Age > 65: (0) No Aspirin use within the Past 7 Days: (0) No 3 or more CAD Risk Factors: (0) No 2 or more Angina events in past 24 hrs: (0) No Known CAD with more than 50% Stenosis: (0) No Elevated Cardiac Markers: (0) No ST Deviation Greater than 0.5mm: (0) No BRENDON Score: 0 ED Medical Decision Making - Lab Data Result diagrams: 09/05/20 08:29 Vital Signs 09/05/20 09/05/20 08:49 09:14 Temperature 98.1 F Pulse Rate 88 Respiratory 18 18 Rate Blood Pressure 182/98 O2 Sat by Pulse 97 Oximetry Lab Results 09/05/20 09/05/20 09/05/20 Range/Units 08:29 08:29 08:29 PT 13.4 (12.2-14.9) Sec. INR 1.01 (0.87-1.13) D-Dimer 296.11 H (0-234) ng/mlDDU Sodium 137 (137-145) mmol/L Potassium 3.6 (3.6-5.0) mmol/L Chloride 103.4 (98-107) mmol/L Carbon Dioxide 22 (22-30) mmol/L Anion Gap 15 mmol/L BUN 10 (7-17) mg/dL Creatinine 1.0 (0.6-1.2) mg/dL Estimated GFR > 60 ml/min BUN/Creatinine Ratio 10 % Glucose 91 (65-100) mg/dL Calcium 9.6 (8.4-10.2) mg/dL Magnesium 2.20 (1.7-2.3) mg/dL Total Creatine Kinase 114 (30-135) units/L Troponin T < 0.010 (0.00-0.029) ng/mL HCG, Quant 0.543 (0-4) mIU/mL 09/05/20 Range/Units 10:13 PT (12.2-14.9) Sec. INR (0.87-1.13) D-Dimer (0-234) ng/mlDDU Sodium (137-145) mmol/L Potassium (3.6-5.0) mmol/L Chloride (98-107) mmol/L Carbon Dioxide (22-30) mmol/L Anion Gap mmol/L BUN (7-17) mg/dL Creatinine (0.6-1.2) mg/dL Estimated GFR ml/min BUN/Creatinine Ratio % Glucose (65-100) mg/dL Calcium (8.4-10.2) mg/dL Magnesium (1.7-2.3) mg/dL Total Creatine Kinase (30-135) units/L Troponin T < 0.010 (0.00-0.029) ng/mL HCG, Quant (0-4) mIU/mL Vital Signs 09/05/20 09/05/20 09/05/20 08:49 09:14 10:14 Temperature 98.1 F Pulse Rate 88 Respiratory 18 18 16 Rate Blood Pressure 182/98 O2 Sat by Pulse 97 Oximetry 09/05/20 09/05/20 09/05/20 10:45 11:00 11:15 Temperature Pulse Rate 69 71 77 Respiratory 16 12 18 Rate Blood Pressure 172/119 172/113 172/113 O2 Sat by Pulse 100 98 99 Oximetry 09/05/20 09/05/20 09/05/20 11:31 11:55 12:15 Temperature Pulse Rate 70 79 80 Respiratory 15 38 H 16 Rate Blood Pressure 172/113 172/113 173/100 O2 Sat by Pulse 99 99 99 Oximetry 09/05/20 12:31 Temperature Pulse Rate 73 Respiratory 9 L Rate Blood Pressure 173/100 O2 Sat by Pulse 100 Oximetry - EKG Data -: EKG Interpreted by [place] EKG shows normal: sinus rhythm Rate: normal - EKG Data When compared to previous EKG there are: previous EKG unavailable 09/05/20 09:17 Sinus rhythm, 67 bpm, normal axis,/right bundle branch block, high left ventricular voltage, QTC 471 ms. EKG is abnormal. The EKG is not a STEMI. There is no prior for comparison. - Radiology Data Radiology results: pending, report reviewed, image reviewed CT angio chest INDICATION / CLINICAL INFORMATION: MAIN. TECHNIQUE: Axial CT images were obtained through the chest after injection of IV contrast. 3 plane MIP and/or 3D reconstructions were produced. All CT scans at this location are performed using CT dose reduction for ALARA by means of automated exposure control. COMPARISON: None FINDINGS: PULMONARY ARTERIES: No pulmonary emboli. HEART: No significant abnormality. MEDIASTINUM / ASHLEY: No significant abnormality. LUNGS: Lungs are clear No pleural effusion. No pneumothorax. ADDITIONAL FINDINGS: None. UPPER ABDOMEN: No acute findings. SKELETAL STRUCTURES: No significant osseous abnormality. IMPRESSION: 1. No CT evidence for pulmonary embolism. 2. No acute findings. Signer Name: Jagdish Cotton MD Signed: 09/05/2020 11:00 AM Workstation Name: [email or web address] Critical care attestation.: If time is entered above; I have spent that time in minutes in the direct care of this critically ill patient, excluding procedure time. ED Disposition Clinical Impression: Elevated blood pressure reading, Right bundle branch block Chest pain Qualifiers: Chest pain type: unspecified Qualified Code(s): R07.9 - Chest pain, unspecified Disposition: TO HOME OR SELFCARE Is pt being admited?: No Does the pt Need Aspirin: No Condition: Stable Instructions: Chest Pain (ED) Additional Instructions: Minimize/avoid consumption of Motrin, ibuprofen, Naprosyn, Aleve, heavy and spicy foods. Avoid consumption of alcohol, and fatty foods. Take the presc ribed medications as needed/directed, if patient takes metformin medication, do not take for the next 2 days. Continue blood pressure medications that were prescribed recently, please follow-up with an outpatient primary care doctor, or sergeant at arms within the next 3 days. Please return to the emergency room right away with new pain, worsened pain, migration of pain, projectile vomiting, change in mental status, confusion, inability to tolerate liquid feeds, new, worsened or different symptoms not present on the initial emergency room evaluation. Prescriptions: Aspirin [Aspirin BABY CHEW TAB] 81 mg PO QDAY #30 tab.chew Acetaminophen [Non-Aspirin Extra Strength] 500 mg PO Q6HR PRN #30 tablet PRN Reason: Pain , Severe (7-10) Famotidine [Pepcid] 20 mg PO QDAY #30 tablet Referrals: BLANCA PECK MD [Staff Physician] - 3-5 Days [facility] [Provider Group] - 3-5 Days Forms: Work/School Release Form(ED)
[2020-09-05 09:22] LABS: INR 1.01 (0.87-1.13)
[2020-09-05 09:24] LABS: BUN/Creatinine Ratio 10; Blood Urea Nitrogen 10 mg/dL (7-17); Calcium 9.6 mg/dL (8.4-10.2); Hemolysis Index 4
--- NOTE | 2020-09-05 12:05 | Cat Scan Report ---
CT angio chest INDICATION / CLINICAL INFORMATION: MAIN. TECHNIQUE: Axial CT images were obtained through the chest after injection of IV contrast. 3 plane MIP and/or 3D reconstructions were produced. All CT scans at this location are performed using CT dose reduction f or ALARA by means of automated exposure control. COMPARISON: None FINDINGS: PULMONARY ARTERIES: No pulmonary emboli. HEART: No significant abnormality. MEDIASTINUM / ASHLEY: No significant abnormality. LUNGS: Lungs are clear No pleural effusion. No pneumothorax. ADDITIONAL FINDINGS: None. UPPER ABDOMEN: No acute findings. SKELETAL STRUCTURES: No significant osseous abnormality. IMPRESSION: 1. No CT evidence for pulmonary embolism. 2. No acute findings. Signer Name: Jagdish Cotton MD Signed: 09/05/2020 12:00 PM Workstation Name: [id number]
[2020-09-05 12:43] VITALS: BP 173/100
== END 2020-09-06 08:50 | disposition home or self-care (01) ==
LOC: ED 07:51
DX: R07.89 Other chest pain (principal); I45.10 Unspecified right bundle-branch block; I10 Essential (primary) hypertension; F17.200 Nicotine dependence, unspecified, uncomplicated; Z79.899 Other long term (current) drug therapy; Z88.8 Allergy status to other drugs, medicaments and biological substances
CPT/HCPCS: 36415; 71275; 80048; 82550; 83735; 84484; 84702; 85379; 85610; 93005; 99285; Q9967